=== PATIENT | male | born 1975 | race Two or more races ===

== ENCOUNTER 2020-10-30 11:38 | Emergency (ER) | payer OTHER ==
[~2020-10-30] VITALS: Ht 167.6 cm; Wt 90.0 kg
[2020-10-30] MEDS ORDERED: MORPHINE SULFATE 4 MG/ML VIAL. IV/SQ PRN (12:00)
[2020-10-30] MEDS ORDERED: NITROGLYCERIN SUBLINGUAL 0.4 MG BOTTLE OF 25. SL PRN (12:00)
[2020-10-30 12:05] LABS: BASO % 0 % (0-3); EOS # 0.2 x10^3/uL (0.0-0.7); EOS % 2 % (0-3); HEMATOCRIT 44.2 % (39.0-53.0); HEMOGLOBIN 15.5 g/dL (13.0-17.5); LYMPH # 2.2 x10^3/uL (1.0-4.8); LYMPH % 28 % (24-48); MEAN CORPUSCULAR HEMOGLOBIN 31 pg (25-35); MEAN CORPUSCULAR HGB CONC 35 g/dL (31-37); MEAN CORPUSCULAR VOLUME 87 fL (79-100); MONO # 0.8 x10^3/uL (0.0-1.1); MONO % 10 % (0-9); NEUT # 4.8 x10^3/uL (1.8-7.7); NEUT % 60 % (31-73); PLATELET COUNT 240 x10^3/uL (140-400); RED BLOOD COUNT 5.06 x10^6/uL (4.30-5.70); RED CELL DISTRIBUTION WIDTH 13.2 % (11.5-14.5)
--- NOTE | 2020-10-30 12:14 | RAD ---
XR CHEST 1V History: Reason: chest pain / Spl. Instructions: / History: Comparison: None. Findings: No consolidation or pleural effusion. Normal heart size. No pneumothorax. Chronic right-sided rib fra cture. Rounded densities projecting over the right lateral chest. Impression: 1. No acute cardiopulmonary process. 2. Two rounded densities projecting over the right lateral chest, may represent foreign bodies. Electronically signed by: Maverick Leon DO (10/30/2020 12:12 PM) [id number]
[2020-10-30 12:18] LABS: CALCIUM 8.8 mg/dL (8.5-10.1); CREATININE 0.8 mg/dL (0.7-1.3); POTASSIUM 3.9 mmol/L (3.5-5.1)
[2020-10-30 12:24] LABS: ALBUMIN 4.2 g/dL (3.4-5.0); ALBUMIN/GLOBULIN RATIO 1.2 (1.0-1.7); MAGNESIUM 2.2 mg/dL (1.8-2.4); TOTAL BILIRUBIN 0.4 mg/dL (0.2-1.0); TOTAL PROTEIN 7.8 g/dL (6.4-8.2)
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
[2020-10-30 16:46] VITALS: BP 134/82
== END 2020-10-30 17:25 | disposition home or self-care (01) ==
LOC: ER 11:38
DX: R07.89 Other chest pain (principal); F17.200 Nicotine dependence, unspecified, uncomplicated
CPT/HCPCS: 36415; 71045; 80053; 83735; 83880; 84443; 84484; 85025; 93005; 96374; 99285; J2270

== ENCOUNTER → 2021-01-23 | Outpatient (CLI) | payer OTHER ==
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
== END ==
LOC: KCIC CT 08:26
PROVIDERS: ATTEND Family Medicine
DX: M50.222 Other cervical disc displacement at C5-C6 level (principal); M48.02 Spinal stenosis, cervical region; M43.12 Spondylolisthesis, cervical region; M25.78 Osteophyte, vertebrae; Z87.828 Personal history of other (healed) physical injury and trauma
CPT/HCPCS: 72125

== ENCOUNTER → 2021-02-24 | Outpatient (CLI) | payer OTHER ==
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
== END ==
LOC: KCIC CT 08:11
PROVIDERS: ATTEND Family Medicine
DX: S32.010A Wedge compression fracture of first lumbar vertebra, initial encounter for closed fracture (principal); M51.46 Schmorl's nodes, lumbar region; M47.816 Spondylosis without myelopathy or radiculopathy, lumbar region; M51.27 Other intervertebral disc displacement, lumbosacral region; M48.07 Spinal stenosis, lumbosacral region; M43.17 Spondylolisthesis, lumbosacral region; M48.8X6 Other specified spondylopathies, lumbar region; M46.06 Spinal enthesopathy, lumbar region; M79.605 Pain in left leg; V89.2XXA Person injured in unspecified motor-vehicle accident, traffic, initial encounter; Y92.89 Other specified places as the place of occurrence of the external cause; Y93.89 Activity, other specified; Y99.8 Other external cause status
CPT/HCPCS: 72131

== ENCOUNTER → 2021-04-24 | Outpatient (CLI) | payer OTHER ==
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
== END ==
LOC: KCIC MRI 10:06
PROVIDERS: ATTEND Internal Medicine
DX: M47.812 Spondylosis without myelopathy or radiculopathy, cervical region (principal); M48.02 Spinal stenosis, cervical region; M48.8X2 Other specified spondylopathies, cervical region; M50.21 Other cervical disc displacement, high cervical region; M25.78 Osteophyte, vertebrae; M43.12 Spondylolisthesis, cervical region; M40.292 Other kyphosis, cervical region; M43.8X6 Other specified deforming dorsopathies, lumbar region; M48.56XA Collapsed vertebra, not elsewhere classified, lumbar region, initial encounter for fracture; N28.1 Cyst of kidney, acquired; M47.816 Spondylosis without myelopathy or radiculopathy, lumbar region; M48.07 Spinal stenosis, lumbosacral region; M51.27 Other intervertebral disc displacement, lumbosacral region
CPT/HCPCS: 72141; 72148

== ENCOUNTER → 2021-09-11 | Outpatient (CLI) | payer BC ==
[~2021-09-11] MED LIST: GABA600T7 PO; HYDR-2761 PO; HYDR-2763 PO
== END ==
LOC: LAB 12:10
PROVIDERS: ATTEND Neurological Surgery
DX: Z01.812 Encounter for preprocedural laboratory examination (principal); Z20.822 Contact with and (suspected) exposure to COVID-19
CPT/HCPCS: U0003

== ENCOUNTER 2021-09-14 06:34 | Day surgery (SDC) | payer BC ==
[~2021-09-14] VITALS: Ht 167.6 cm; Wt 113.6 kg
[~2021-09-14 06:34] MED LIST changes: -GABA600T7 PO; -HYDR-2761 PO; -HYDR-2763 PO; +HYDROmorphone 2 MG/ML INJ. IVP PRN; +IV RINGERS,LACTATED 1000ML 1,000 ML IV SCH; +MORPHINE SULFATE 2 MG/ML INJ. IVP PRN; +PROCHLORPERAZINE 10 MG/2 ML VIAL. IVP PRN; +fentaNYL PF VIAL 100 MCG/2 ML VIAL IVP PRN
[2021-09-14] MEDS ORDERED: GABA600T7 PO (07:02)
[2021-09-14] MEDS ORDERED: HYDR-2763 PO (07:02)
[2021-09-14 07:03] VITALS: BP 139/92
[2021-09-14] MEDS ORDERED: BUPIVACAINE MPF 0.25% 30 ML VIAL. ONE (07:03)
[2021-09-14] MEDS ORDERED: HYDR-2761 PO (07:52)
[2021-09-14] MEDS ORDERED: ONDANSETRON PF 4 MG/2 ML VIAL. ONE (07:56)
[2021-09-14] MEDS ORDERED: fentaNYL PF VIAL 100 MCG/2 ML VIAL ONE (07:56)
[2021-09-14] MEDS ORDERED: PROPOFOL 10 MG/ML (20ML) VIAL. IV ONE (07:56)
[2021-09-14] MEDS ORDERED: DEXAMETHASONE SOD PHOS 4 MG/ML VIAL ONE (07:56)
[2021-09-14] MEDS ORDERED: MIDAZOLAM HCL/PF 2 MG/2 ML VIAL. ONE (07:56)
[2021-09-14] MEDS ORDERED: FAMOTIDINE 20 MG/2 ML VIAL ONE (07:56)
[2021-09-14] MEDS ORDERED: LIDOCAINE 2% PF 5 ML VIAL. ONE (07:57)
--- NOTE | 2021-09-14 08:58 | DISCH ---
DISCHARGE INSTRUCTIONS Condition on Discharge Condition on Discharge: Stable Activity After Discharge Activity Instructions for Disc: Activity as tolerated, Avoid exertion Lifting Instructions after Dis: No pulling or pushing Driving Instructions after Dis: Do not drive today Wound Incision Care Wound/Incision Care: Ice to area for comfort, Keep wound elevated, Change dressing Other wound/incision instructi: May change dressing to waterproof Band-Aid postoperative day #3 Follow-Up Follow up with: 10 to 14 days ERIN JACOB Jr. DO Sep 14, 2021 08:58
--- NOTE | 2021-09-14 09:20 | PDOC4 ---
OPERATIVE NOTE Date: Date: Sep 14, 2021 Pre-Op Diagnosis: Chronic carpal tunnel syndrome right Post-Op Diagnosis: Same Procedure Performed: Carpal tunnel release right Surgeon: Hedy Anesthesia Type: General Blood Loss: 5 cc Specimans Obtained: None Findings: See dictation ERIN JACOB Jr., DO Sep 14, 2021 09:20
[2021-09-14] MEDS: fentaNYL PF VIAL 100 MCG/2 ML VIAL IVP PRN ×2 (09:35→09:43)
[2021-09-14] MEDS ORDERED: HYDROcodone/APAP 5/325MG 1 TAB TABLET PO ONE (09:45)
[2021-09-14 10:20] VITALS: BP 115/55
--- NOTE | 2021-09-14 13:46 | OP ---
DATE OF SURGERY: 09/14/2021 PREOPERATIVE DIAGNOSIS: Chronic carpal tunnel syndrome, right. POSTOPERATIVE DIAGNOSIS: Chronic carpal tunnel syndrome, right. PROCEDURE: Carpal tunnel release, right. SURGEON: Chris Knott Jr, DO. CASSANDRA DEVELOPER: Andres Gomez. ANESTHESIA: General. COMPLICATIONS: None. ESTIMATED BLOOD LOSS: 5 mL. DESCRIPTION OF PROCEDURE: Right upper extremity was then prepped and draped in a sterile fashion. Incision was made directly over the area of the transverse carpal ligament in line with the radial border of the digit. This was carefully down through skin and subcutaneous tissues down through the palmar fascia. Once through the palmar fascia, the transverse carpal ligament was identified at this point. A minimal portion of the insertion of the thenar musculature was removed in order to make the incision longitudinally through the transverse carpal ligament, which was released in its entirety. The underlying nerve was noted to be intact. The wound was then thoroughly irrigated. It was reapproximated in an interrupted fashion using 3-0 nylon. The wound was then infiltrated with local. Sterile dressing was applied. The tourniquet was deflated with good return of pulses and capillary refill. The patient was then taken from the operative bed to the postoperative bed, taken to the PACU in stable condition. JUSTINE/AGUILA/ADAM DR: Andre TID: [id number]
== END 2021-09-14 10:40 | disposition home or self-care (01) ==
LOC: SURG 06:34
PROVIDERS: ATTEND Orthopaedic Surgery
DX: G56.01 Carpal tunnel syndrome, right upper limb (principal); F17.210 Nicotine dependence, cigarettes, uncomplicated; Z79.899 Other long term (current) drug therapy; Z98.890 Other specified postprocedural states
CPT/HCPCS: 64721; A4930; J0690; J1100; J2250; J2405; J2704; J3010; J3490; A4657; A6452

== ENCOUNTER → 2021-09-30 | Outpatient (CLI) | payer BC ==
[2021-09-14 10:20] VITALS: BP 115/55
[~2021-09-30] MED LIST changes: +GABA600T7 PO; +HYDR-2759 PO; +HYDR-2761 PO; +HYDR-2763 PO; -HYDROmorphone 2 MG/ML INJ. IVP PRN; -IV RINGERS,LACTATED 1000ML 1,000 ML IV SCH; -MORPHINE SULFATE 2 MG/ML INJ. IVP PRN; -PROCHLORPERAZINE 10 MG/2 ML VIAL. IVP PRN; -fentaNYL PF VIAL 100 MCG/2 ML VIAL IVP PRN
== END ==
LOC: LAB 13:19
PROVIDERS: ATTEND Orthopaedic Surgery
DX: Z01.812 Encounter for preprocedural laboratory examination (principal); Z20.822 Contact with and (suspected) exposure to COVID-19
CPT/HCPCS: U0003

== ENCOUNTER 2021-10-02 08:26 | Day surgery (SDC) | payer BC, OTHER ==
[~2021-10-02] VITALS: Ht 167.6 cm; Wt 113.6 kg
[~2021-10-02 08:26] MED LIST changes: -HYDR-2759 PO; +HYDROmorphone 2 MG/ML INJ. IVP PRN; +IV RINGERS,LACTATED 1000ML 1,000 ML IV SCH; +MORPHINE SULFATE 2 MG/ML INJ. IVP PRN; +PROCHLORPERAZINE 10 MG/2 ML VIAL. IVP PRN; +fentaNYL PF VIAL 100 MCG/2 ML VIAL IVP PRN
[2021-10-02 08:56] VITALS: BP 131/77
[2021-10-02] MEDS ORDERED: HYDR-2759 PO (09:51)
[2021-10-02] MEDS ORDERED: LIDOCAINE 1% PF 5 ML VIAL. ONE (10:10)
[2021-10-02] MEDS ORDERED: DEXAMETHASONE SOD PHOS 4 MG/ML VIAL ONE (10:10)
[2021-10-02] MEDS ORDERED: PROPOFOL 10 MG/ML (20ML) VIAL. IV ONE ×2 (10:10)
[2021-10-02] MEDS ORDERED: ONDANSETRON PF 4 MG/2 ML VIAL. ONE (10:10)
[2021-10-02] MEDS ORDERED: BUPIVACAINE-EPI 0.25% 30 ML VIAL KIT. ONE (10:12)
[2021-10-02] MEDS ORDERED: fentaNYL PF VIAL 100 MCG/2 ML VIAL ONE (10:20)
--- NOTE | 2021-10-02 10:34 | PDOC4 ---
OPERATIVE NOTE Date: Date: Oct 02, 2021 Pre-Op Diagnosis: Carpal tunnel syndrome left Post-Op Diagnosis: Same Procedure Performed: Carpal tunnel release left Surgeon: Hedy Anesthesia Type: General Blood Loss: 5 cc Specimans Obtained: None Findings: See dictation Complications: None ERIN JACOB Jr. DO Oct 02, 2021 10:34
--- NOTE | 2021-10-02 10:45 | PREOP HP ---
DATE OF SERVICE: 10/02/2021 HISTORY OF PRESENT ILLNESS: Status post right carpal tunnel release with significant numbness, tingling and pain in the median nerve distribution with a positive EMG to the left upper extremity as well. He has tried conservative therapies, nothing is helping significantly at this point. He is having issues with ongoing numbness and tingling in the median nerve distribution. He has already requested to have this surgically released. PAST MEDICAL HISTORY: Remarkable for asthma. PAST SURGICAL HISTORY: Eye surgery. HOSPITALIZATIONS: None. FAMILY HISTORY: Remarkable for diabetes. SOCIAL HISTORY: The patient does not use any tobacco or alcohol. MEDICATIONS: Currently are gabapentin, hydrocodone for pain postoperatively, indomethacin and lisinopril. MEDICATION ALLERGIES: None. PHYSICAL EXAMINATION: GENERAL: He is 242 pounds, 66 inches tall, alert and oriented x 3. HEART: Regular rate and rhythm. LUNGS: Clear to auscultation in all hoang. ABDOMEN: Soft and nontender with no pain. No distention. EXTREMITIES: Reveal him to be an incision, which is healed on the right area of the hand overlying the carpal tunnel. He also has signs of decreased sensation in the median distribution of the left hand. Positive Tinel's, positive Phalen's test. No thenar atrophy is noted, but definite weakness with pinch at this point. IMPRESSION: Carpal tunnel syndrome of left and status post carpal tunnel release of right. PLAN: He will undergo a carpal tunnel release at this point on the left. We will remove the sutures while he is under anesthesia on the right side due to the healing of that. WANDY DR: Andre TID: [id number]
--- NOTE | 2021-10-02 10:45 | OP ---
DATE OF SURGERY: 10/02/2021 PREOPERATIVE DIAGNOSIS: Carpal tunnel syndrome, left. POSTOPERATIVE DIAGNOSIS: Carpal tunnel syndrome, left. PROCEDURE: Carpal tunnel release, left. SURGEON: Chris Knott Jr, DO EXPLOSIVE OPERATOR FUSE : Rosie. ANESTHESIA: General. COMPLICATIONS: None. ESTIMATED BLOOD LOSS: 5 mL. DESCRIPTION OF PROCEDURE: Left upper extremity was then prepped and draped in a sterile fashion. Incision was made directly over the area of the transverse carpal ligament in line with the radial border of the left digit. This was carefully down through skin and subcutaneous tissues down through the palmar fascia. Once through the palmar fascia, the transverse carpal ligament was identified at this point. A minimal portion of the insertion of the thenar musculature was removed in order to make the incision longitudinally through the transverse carpal ligament, which was released in its entirety. The underlying nerve was noted to be intact. The wound was then thoroughly irrigated. It was reapproximated in an interrupted fashion using 3-0 nylon. The wound was then infiltrated with local. Sterile dressing was applied. The tourniquet was deflated with good return of pulses and capillary refill. The patient was then taken from the operative bed to the postoperative bed, taken to the PACU in stable condition. JUSTINE/ZOHAIB DR: Andre TID: [id number]
[2021-10-02 11:20] VITALS: BP 132/73
[2021-10-02] MEDS ORDERED: HYDROcodone/APAP 5/325MG 1 TAB TABLET PO ONE ×2 (11:30)
== END 2021-10-02 11:50 | disposition home or self-care (01) ==
LOC: SURG 08:26
PROVIDERS: ATTEND Orthopaedic Surgery
DX: G56.02 Carpal tunnel syndrome, left upper limb (principal); I10 Essential (primary) hypertension; M19.90 Unspecified osteoarthritis, unspecified site; M81.0 Age-related osteoporosis without current pathological fracture; F17.210 Nicotine dependence, cigarettes, uncomplicated; Z79.899 Other long term (current) drug therapy; Z98.890 Other specified postprocedural states
CPT/HCPCS: 64721; A4930; A6402; J0690; J1100; J2405; J2704; J3010; J3490; A4657; A6452